=== PATIENT | female | born 1955 | race Caucasian/White ===

== ENCOUNTER 2017-05-23 13:19 | Inpatient (IN) | payer BC ==
[~2017-05-23] VITALS: Ht 157.5 cm; Wt 47.6 kg
--- NOTE | 2017-05-23 13:22 | NUR ---
A/OX4. AMBULATORY IN A STEADY GAIT W/ C/O DIZZINESS STARTED AT 1115AM IN A YOGA CLASS, PT STS SHE HAS A H/O VERTIGO. C/O NAUSEA. NAD VSS RR EVEN AND UNLABORED. NEURO INTACT.
[2017-05-23] MEDS ORDERED: MECLIZINE HCL 25 MG TABLET ONE (13:37)
[2017-05-23 13:55] LABS: BASOPHILS % (AUTO) 0.4 % (0.0-2.0); EOSINOPHILS % (AUTO) 0.6 % (0.0-6.0); HEMATOCRIT 43 % (33-45); HEMOGLOBIN 14.6 g/dL (11.5-14.8); LYMPHOCYTES # (AUTO) 1.8 /CMM (0.8-4.8); LYMPHOCYTES % (AUTO) 37.4 % (20.0-44.0); MEAN CORPUSCULAR HEMOGLOBIN 31 PG (26.0-33.0); MEAN CORPUSCULAR HGB CONC 34 g/dl (31.0-36.0); MEAN CORPUSCULAR VOLUME 91 fL (82-100); MONOCYTES # (AUTO) 0.4 /CMM (0.1-1.30); MONOCYTES % (AUTO) 8.2 % (2.0-12.0); NEUTROPHILS # (AUTO) 2.6 /CMM (1.8-8.9); NEUTROPHILS % (AUTO) 53.4 % (43.0-81.0); PLATELET COUNT (AUTO) 251 /CMM (150-450); RDW COEFFICIENT OF VARIATION 13.6 (11.5-15.0); RED BLOOD CELL COUNT(AUTO) 4.69 MIL/uL (4.0-5.2); WHITE BLOOD COUNT (AUTO) 4.9 K/uL (4.3-11.0)
[2017-05-23] MEDS ORDERED: IV NS 0.9% 500 ML BAG IV ONE (14:00)
[2017-05-23] MEDS ORDERED: MECLIZINE HCL 12.5 MG TABLET PO ONE (14:00)
[2017-05-23 14:06] LABS: CALCIUM, SERUM 9.5 mg/dL (8.5-10.1); CARBON DIOXIDE 26 mmol/L (21-32); CHLORIDE 102 mmol/L (98-107); CREATININE 0.8 mg/dL (0.6-1.3); GLUCOSE 99 mg/dL (74-106); POTASSIUM 4.3 mmol/L (3.5-5.1); SODIUM SERUM 137 mmol/L (136-145); UREA NITROGEN, BLOOD 17 mg/dL (7-18)
[2017-05-23 14:14] LABS: INR 0.96 (0.87-1.13)
[2017-05-23 14:16] LABS: TROPONIN I < 0.017 ng/mL (0.00-0.056)
[2017-05-23] MEDS ORDERED: IV NS 0.9% 1,000 ML IV ONE (14:30)
--- NOTE | 2017-05-23 15:52 | NUR ---
PAGED EPIC FOR PANEL
[2017-05-23] MEDS ORDERED: ACETAMINOPHEN 325 MG TABLET PO PRN ×2 (17:00→17:30)
[2017-05-23] MEDS ORDERED: ONDANSETRON HCL/PF 4 MG/2 ML VIAL IVP PRN ×2 (17:00→17:30)
[2017-05-23] MEDS ORDERED: MAG HYDROX/AL HYDROX/SIMETH 30 ML UDC PO PRN ×2 (17:00→17:30)
[2017-05-23] MEDS ORDERED: MAGNESIUM HYDROXIDE 30 ML UDC PO PRN ×2 (17:00→17:30)
[2017-05-23] MEDS ORDERED: HYDROCODONE/APAP 5/325MG 1 EACH TABLET PO PRN ×2 (17:00→17:30)
[2017-05-23] MEDS ORDERED: Z GUARD REMEDY 2 OZ OINT TP PRN ×2 (17:00→17:30)
--- NOTE | 2017-05-23 17:15 | NUR ---
REPORT GIVEN TO AYAD JOHNSON FOR [facility] [facility]
--- NOTE | 2017-05-23 17:45 | NUR ---
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 VS TAKEN, BODY CHECK , HOSPITAL ORIENTATION DONE , PLACED ON TELE MONITOR WITH SR ON TELE MONITOR , NO SOB ,NO DIZZINESS AT THIS TIME NOTED , HL ON LT AC INTACT ETHAN 22 NO S\S INFECTION NOTED , BED IN LOWEST AND LOCKED POSITION , CALL LIGHT WITHIN REACH , PLAN OF CARE DISCUSSED WITH PATIENT , WILL CONT TO MONITOR CLOSELY
[2017-05-23 17:48] VITALS: BP 134/79
--- NOTE | 2017-05-23 18:00 | NUR ---
POULTRY SERVICE TECHNICIAN NOTE CONSENT FO MRA SIGNED BY PATIENT , TAKEN TO MRI DEPARTMENT ON W\C WITH BILLER
--- NOTE | 2017-05-23 19:04 | NUR ---
REMEDIAL MASSEUR NOTE HAVING DINNER , NOT IN ACUTE DISTRESS, WILL CONT TO MONITOR CLOSELY
--- NOTE | 2017-05-23 19:30 | NUR ---
WOOL SHEARER NOTES, PATIENT IN BED EATING DINER AT THIS TIME, ALERT AND ORIENTED, ABLE TO VERBALIZED CONCERN AND NEEDS, NO S/S OR C/O [PAIN OR DISCOMFORT AT THIS TIMER, NO C/O DIZZINESS AT THIS TIME, BREATHING EVEN AND UNLABORED, SR IN THE TELE MONITOR, ALL NEEDS ATTENDED AND RENDERED, CALL LIGHT W/I REACH, WILL CONTINUE TO MONITOR CLOSELY.
[2017-05-23 20:00] VITALS: BP_SYST 113; BP_SYST 121; BP_SYST 122; BP_DIAS 72; BP_DIAS 77; BP_DIAS 79
--- NOTE | 2017-05-23 20:00 | NUR ---
BRIDGE ATTACHER NOTES, CHECK PATIENT FOR ORTHOSTATIC BLOOD PRESSURE AT THIS TIME, LYING DOWN BP 113/72, HR, 81, SITTING 121/77, HR 84, STANDING 122/79, HR 86; NO C/O DISCOMFORT AT THIS TIME, BUT STATES THAT WHENEVER SHE GET UP AND WALK AROUND GETS DIZZY. PATIENT FREE OF INJURY AT THIS TIME, SAFETY MEASURES PROVIDED AT ALL TIMES, INSTRUCTED PATIENT TO USE THE CALL LIGHT AND CALL FOR ASSISTANCE, WILL CONTINUE TO MONITOR CLOSELY.
[2017-05-24] VITALS (7 sets, daily range): BP systolic 81–109; BP diastolic 45–65
--- NOTE | 2017-05-24 00:30 | NUR ---
SUPPLIER QUALITY MANAGER NOTES, PATIENT NOTED WITH LOW BLOOD PRESSURE 81/45, NO C/O DISCOMFORT, PATIENT ASYMPTOMATIC, BUT STATED THAT WHENEVER SHE GETS UP AND WALK FEELS DIZZY, WILL INFORM MD.
--- NOTE | 2017-05-24 00:50 | NUR ---
AGRICULTURAL EQUIPMENT OPERATOR NOTES, NOTED PATIENT WITH BLOOD PRESSURE OF 81/45, PLACED AN A CALL AND INFORMED MD ABOUT PATIENT BP, AND MD AURORA KRAMER REPLIED THAT WILL INPUT ORDERS INT THE SYSTEM.
[2017-05-24] MEDS ORDERED: IV NS 0.9% 1,000 ML IV PRN (01:00)
--- NOTE | 2017-05-24 07:30 | NUR ---
inital PT ALERT AND ORIENTED X4 MRI DONE PT STILL FEELS DIZZY LIKE THE ROOM IS SPINNING. PT ON MONITOR SR AT 68 PT ABLE TO MOVE ALL LIMBS ON REGULAR DIET. PT ON NS AT 60 MLS/HR THROUGH 22 G IN LAC CLEAN DRY AND INTACT. BED IN LOW POSITION CALL BLACK NEXT TO PT.
[2017-05-24] MEDS ORDERED: GADOVERSETAMIDE 5 MMOL/10 ML VIAL IJ ONE (08:43)
[2017-05-24] MEDS ORDERED: MECLIZINE HCL 12.5 MG TABLET PO SCH ×2 (09:00)
[2017-05-24] MEDS ORDERED: MECLIZINE HCL 12.5 MG TABLET PO PRN (16:30)
[2017-05-24 17:45] LABS: BASOPHILS % (AUTO) 0.6 % (0.0-2.0); EOSINOPHILS # (AUTO) 0.1 /CMM (0.0-0.7); EOSINOPHILS % (AUTO) 1.4 % (0.0-6.0); HEMATOCRIT 39 % (33-45); HEMOGLOBIN 13.4 g/dL (11.5-14.8); LYMPHOCYTES # (AUTO) 2.1 /CMM (0.8-4.8); LYMPHOCYTES % (AUTO) 52.4 % (20.0-44.0); MEAN CORPUSCULAR HEMOGLOBIN 32 PG (26.0-33.0); MEAN CORPUSCULAR HGB CONC 34 g/dl (31.0-36.0); MEAN CORPUSCULAR VOLUME 92 fL (82-100); MONOCYTES # (AUTO) 0.5 /CMM (0.1-1.30); MONOCYTES % (AUTO) 11.9 % (2.0-12.0); NEUTROPHILS # (AUTO) 1.4 /CMM (1.8-8.9); NEUTROPHILS % (AUTO) 33.7 % (43.0-81.0); PLATELET COUNT (AUTO) 244 /CMM (150-450); RDW COEFFICIENT OF VARIATION 13.4 (11.5-15.0); RED BLOOD CELL COUNT(AUTO) 4.27 MIL/uL (4.0-5.2); WHITE BLOOD COUNT (AUTO) 4.1 K/uL (4.3-11.0)
[2017-05-24 17:54] LABS: CALCIUM, SERUM 8.9 mg/dL (8.5-10.1); CREATININE 0.7 mg/dL (0.6-1.3); POTASSIUM 4.8 mmol/L (3.5-5.1)
[2017-05-24 18:00] LABS: ALBUMIN 3.4 g/dL (3.4-5.0); BILIRUBIN,TOTAL 0.6 mg/dL (0.2-1.0); TOTAL PROTEIN, SERUM 7.1 g/dL (6.4-8.2)
[2017-05-24 18:07] LABS: THYROID STIMULATING HORMONE 2.405 uIU/mL (0.358-3.74)
--- NOTE | 2017-05-24 18:52 | NUR ---
CLOSING PT ALERT WALKS AROUND UNIT OFF FLUIDS DRINKING AND USING BATH ROOM ENDORSING CARE TO NEXT SHIFT RN
[2017-05-25] VITALS: BP 95/54
[2017-05-25 04:00] VITALS: BP 94/54
--- NOTE | 2017-05-25 06:30 | NUR ---
CAT BREEDER CLOSING NOTES, PATIENT REMAINED STABLE THOUGHT THE SHIFT NO C/O DIZZINESS, BREATHING EVEN AND UNLABORED, NO S/S OF SOB/ACUTE DISTRESS OR DISCOMFORT REPORTED, WILL ENDORSE CONTINUITY OF CARE TO ONCOMING NURSE.
--- NOTE | 2017-05-25 07:05 | NUR ---
RN INITIAL NOTES: REC'D PT AWAKE ON BED, NOT IN ANY DISTRESS, A/O X 4. PT ON ROOM AIR, DENIES SOB. ON TELEMONITOR, SR W/ HR 86 BPM. HAS L AC G22 SL, FLUSHING WELL W/ NO S/SX OF INFECTION/INFILTRATION NOTED. PROVIDED COMFORT & SAFETY MEASURES. BED KEPT LOW & IN LOCKED POS. CALL LIGHT PLACED W/IN REACH. PT IS AMBULATORY, DENIES ANY DIZZINESS, VERBALIZED SHE WANTED TO GO HOME BEFORE 12NN. WILL CONTINUE TO MONITOR & ATTEND PT NEEDS.
[2017-05-25 08:00] VITALS: BP 95/64
[2017-05-25] MEDS ORDERED: MECL-118 PO (10:23)
--- NOTE | 2017-05-25 10:25 | NUR ---
RN NOTES: PT SEEN & EXAMINED BY GERRY EUCEDA W/ ORDERS FOR DC TO HOME.
--- NOTE | 2017-05-25 11:30 | NUR ---
RN CVICU NOTES: PT DC'D TO HOME ORDERED. PT IS A/O 4, DENIES ANY DIZZINESS, VERBALIZED SHE IS FEELING BETTER NOW. IV LINE ACCESS REMOVED, PRESSURE DRESSING APPLIED, NO BLEEDING NOTED. TELEMONITOR REMOVED. DC DOCUMENTS PROVIDED & EXPLAINED TO THE PT. ALL BELONGINGS W/ PT, PER PT NOTHING IS MISSING. PT LEFT FACILITY IN STABLE CONDITION AMBULATORY W/ STEADY GAIT.
== END 2017-05-25 11:34 | disposition home or self-care (01) | DRG 149 ==
LOC: ER 13:23 → TELE1 17:37
PROVIDERS: ADMIT Nurse Practitioner Acute Care; ATTEND Nurse Practitioner Acute Care
DX: H81.10 Benign paroxysmal vertigo, unspecified ear (principal); M85.80 Other specified disorders of bone density and structure, unspecified site; Z88.1 Allergy status to other antibiotic agents; Z88.0 Allergy status to penicillin; Z88.2 Allergy status to sulfonamides; Z82.49 Family history of ischemic heart disease and other diseases of the circulatory system; Z80.3 Family history of malignant neoplasm of breast
CPT/HCPCS: 36415; 70450-TC; 71045-TC; 80048-TC; 80053-TC; 84443-TC; 84484-TC; 85025-TC; 85730-TC; 87081-TC; A4606; A6402; A9579; J7030; J7040; J8597; Z7610